=== PATIENT | female | born 1935 | race Two or more races ===

== ENCOUNTER 2017-12-10 08:35 | Outpatient (CLI) | payer OTHER ==
[~2017-12-10 08:35] MED LIST: COZAAR50 MG; DIAZEPAM5 MG PO; ENALAPRIL MALEA10 MG; LIPITOR20 MG; NEURONTIN300 MG; OMEPRAZOLE20 MG; SERTRALINE HCL25 MG; TRAMADOL HCL-AP1 TAB; ZETIA10 MG; ZOVIRAX5 GM
== END 2017-12-10 08:47 | disposition home or self-care (01) ==
LOC: LAB 08:35
DX: D50.0 Iron deficiency anemia secondary to blood loss (chronic) (principal); E11.65 Type 2 diabetes mellitus with hyperglycemia; E11.9 Type 2 diabetes mellitus without complications; Z12.11 Encounter for screening for malignant neoplasm of colon; K62.5 Hemorrhage of anus and rectum; R10.9 Unspecified abdominal pain; E78.2 Mixed hyperlipidemia; E03.0 Congenital hypothyroidism with diffuse goiter; N39.0 Urinary tract infection, site not specified; E55.9 Vitamin D deficiency, unspecified; M81.0 Age-related osteoporosis without current pathological fracture; E11.29 Type 2 diabetes mellitus with other diabetic kidney complication

== ENCOUNTER 2018-01-22 12:12 | Emergency (ER) | payer OTHER ==
[~2018-01-22] VITALS: Ht 152.4 cm; Wt 54.4 kg
[2018-01-22] MEDS ORDERED: AMLODIPINE BESYL5 MG (12:32)
[2018-01-22] MEDS ORDERED: AVAPRO300 MG (12:33)
== END 2018-01-22 16:21 | disposition home or self-care (01) ==
LOC: ER 12:12
DX: B34.9 Viral infection, unspecified (principal)

== ENCOUNTER 2018-03-08 07:32 | Outpatient (CLI) | payer OTHER ==
[~2018-03-08 07:32] MED LIST changes: +AMLODIPINE BESYL5 MG; +AVAPRO300 MG
== END 2018-03-08 07:39 | disposition home or self-care (01) ==
LOC: LAB 07:32
DX: D50.0 Iron deficiency anemia secondary to blood loss (chronic) (principal); E11.65 Type 2 diabetes mellitus with hyperglycemia; E78.2 Mixed hyperlipidemia; E03.0 Congenital hypothyroidism with diffuse goiter; N39.0 Urinary tract infection, site not specified

== ENCOUNTER → 2018-05-24 06:54 | Outpatient (CLI) | payer OTHER | END | disposition home or self-care (01) | LOC: LAB 06:54 | DX: E78.00 Pure hypercholesterolemia, unspecified (principal); N39.0 Urinary tract infection, site not specified ==

== ENCOUNTER 2018-12-02 08:29 | Outpatient (CLI) | payer OTHER | END 2018-12-02 08:44 | disposition home or self-care (01) | LOC: LAB 08:29 | DX: D50.0 Iron deficiency anemia secondary to blood loss (chronic) (principal); E11.69 Type 2 diabetes mellitus with other specified complication; E78.00 Pure hypercholesterolemia, unspecified; E03.8 Other specified hypothyroidism; N39.0 Urinary tract infection, site not specified; Z12.11 Encounter for screening for malignant neoplasm of colon; K62.5 Hemorrhage of anus and rectum; R10.9 Unspecified abdominal pain; E55.9 Vitamin D deficiency, unspecified; E51.8 Other manifestations of thiamine deficiency ==

== ENCOUNTER 2018-12-03 07:29 | Outpatient (CLI) | payer OTHER | END 2018-12-03 09:10 | disposition home or self-care (01) | LOC: LAB 07:29 | DX: D50.0 Iron deficiency anemia secondary to blood loss (chronic) (principal); E11.69 Type 2 diabetes mellitus with other specified complication; E78.00 Pure hypercholesterolemia, unspecified; E03.8 Other specified hypothyroidism; N39.0 Urinary tract infection, site not specified; Z12.11 Encounter for screening for malignant neoplasm of colon; K62.5 Hemorrhage of anus and rectum; R10.9 Unspecified abdominal pain; E55.9 Vitamin D deficiency, unspecified; E51.8 Other manifestations of thiamine deficiency ==

== ENCOUNTER 2019-01-17 11:02 | Emergency (ER) | payer OTHER ==
[~2019-01-17] VITALS: Ht 165.1 cm; Wt 57.2 kg
[2019-01-17] MEDS ORDERED: PRAVASTATIN SOD40 MG PO (11:13)
[2019-01-17] MEDS ORDERED: ZETIA10 MG PO (11:13)
== END 2019-01-17 12:27 | disposition home or self-care (01) ==
LOC: ER 11:02
DX: J04.0 Acute laryngitis (principal)

== ENCOUNTER 2019-03-14 07:08 | Outpatient (CLI) | payer OTHER ==
[~2019-03-14 07:08] MED LIST changes: +PRAVASTATIN SOD40 MG PO; +ZETIA10 MG PO
== END 2019-03-14 07:15 | disposition home or self-care (01) ==
LOC: LAB 07:08
DX: D50.0 Iron deficiency anemia secondary to blood loss (chronic) (principal); E11.69 Type 2 diabetes mellitus with other specified complication; E78.00 Pure hypercholesterolemia, unspecified; E03.8 Other specified hypothyroidism; N39.0 Urinary tract infection, site not specified

== ENCOUNTER → 2019-04-11 | Emergency (ER) | payer OTHER ==
[~2019-04-11] VITALS: Ht 157.5 cm; Wt 49.9 kg
== END | disposition home or self-care (01) ==
LOC: ER 10:29
DX: R42 Dizziness and giddiness (principal); F41.8 Other specified anxiety disorders

== ENCOUNTER → 2019-05-06 | Emergency (ER) | payer OTHER ==
[~2019-05-06] VITALS: Ht 162.6 cm; Wt 49.9 kg
== END | disposition home or self-care (01) ==
LOC: ER 13:35
DX: R10.84 Generalized abdominal pain (principal); R11.2 Nausea with vomiting, unspecified

== ENCOUNTER 2019-06-17 06:47 | Outpatient (CLI) | payer OTHER | END 2019-06-17 06:54 | disposition home or self-care (01) | LOC: LAB 06:47 | DX: D64.89 Other specified anemias (principal); I10 Essential (primary) hypertension; E11.9 Type 2 diabetes mellitus without complications; E78.00 Pure hypercholesterolemia, unspecified; N39.0 Urinary tract infection, site not specified; E03.8 Other specified hypothyroidism; E11.69 Type 2 diabetes mellitus with other specified complication ==

== ENCOUNTER 2019-08-02 13:12 | Emergency (ER) | payer OTHER ==
[~2019-08-02] VITALS: Ht 152.4 cm; Wt 49.9 kg
[2019-08-02] MEDS ORDERED: TRAZODONE HCL50 MG (13:18)
[2019-08-02] MEDS ORDERED: ATACAND16 MG (13:19)
[2019-08-02] MEDS ORDERED: LANSOPRAZOLE15 MG (13:19)
[2019-08-02] MEDS ORDERED: LIPO-FLAVONOID1 EACH (13:20)
[2019-08-02] MEDS ORDERED: CORTISPORIN EAR10 M1 (13:20)
== END 2019-08-02 16:35 | disposition home or self-care (01) ==
LOC: ER 13:12
DX: G89.11 Acute pain due to trauma (principal); M25.511 Pain in right shoulder; M54.2 Cervicalgia; G44.309 Post-traumatic headache, unspecified, not intractable; R07.89 Other chest pain

== ENCOUNTER 2019-08-12 11:45 | Emergency (ER) | payer OTHER ==
[~2019-08-12] VITALS: Ht 157.5 cm; Wt 58.1 kg
[~2019-08-12 11:45] MED LIST changes: +ATACAND16 MG; +CORTISPORIN EAR10 M1; +LANSOPRAZOLE15 MG; +LIPO-FLAVONOID1 EACH; +TRAZODONE HCL50 MG
== END 2019-08-12 13:37 | disposition home or self-care (01) ==
LOC: ER 11:45
DX: I16.0 Hypertensive urgency (principal); I10 Essential (primary) hypertension

== ENCOUNTER 2019-11-30 07:42 | Outpatient (CLI) | payer OTHER | END 2019-11-30 07:50 | disposition home or self-care (01) | LOC: LAB 07:42 | DX: D64.89 Other specified anemias (principal); I10 Essential (primary) hypertension; E11.9 Type 2 diabetes mellitus without complications; E78.00 Pure hypercholesterolemia, unspecified; N39.0 Urinary tract infection, site not specified; E03.8 Other specified hypothyroidism; E55.9 Vitamin D deficiency, unspecified; R80.8 Other proteinuria; R19.5 Other fecal abnormalities ==

== ENCOUNTER 2021-04-17 11:32 | Outpatient (CLI) | payer OTHER | END 2021-04-17 11:40 | disposition home or self-care (01) | LOC: RAD 11:32 | PROVIDERS: ATTEND Internal Medicine | DX: M25.552 Pain in left hip (principal); M25.551 Pain in right hip; M25.59 Pain in other specified joint; M13.88 Other specified arthritis, other site ==

== ENCOUNTER 2022-07-04 08:05 | Outpatient (CLI) | payer OTHER | END 2022-07-04 08:08 | disposition home or self-care (01) | LOC: SONOGRAMA 08:05 | PROVIDERS: ATTEND Internal Medicine | DX: N18.2 Chronic kidney disease, stage 2 (mild) (principal) ==

== ENCOUNTER 2022-07-12 18:47 | Emergency (ER) | payer OTHER ==
[~2022-07-12] VITALS: Ht 149.9 cm; Wt 49.0 kg
[2022-07-12] MEDS ORDERED: ROSUVASTATIN CA10 MG PO (19:32)
[2022-07-12] MEDS ORDERED: VERAPAMIL ER120 MG PO (19:32)
[2022-07-12] MEDS ORDERED: AZITHROMYCIN250 MG PO (22:33)
[2022-07-12] MEDS ORDERED: DIABETIC SILTU118 M1 PO (22:36)
== END 2022-07-12 22:41 | disposition home or self-care (01) ==
LOC: ER 18:47
DX: U07.1 COVID-19 (principal); I10 Essential (primary) hypertension; Z88.0 Allergy status to penicillin; Z88.8 Allergy status to other drugs, medicaments and biological substances

== ENCOUNTER 2022-10-07 08:43 | Outpatient (CLI) | payer OTHER ==
[~2022-10-07 08:43] MED LIST changes: +AZITHROMYCIN250 MG PO; +DIABETIC SILTU118 M1 PO; +ROSUVASTATIN CA10 MG PO; +VERAPAMIL ER120 MG PO
== END 2022-10-07 08:51 | disposition home or self-care (01) ==
LOC: SONOGRAMA 08:43
PROVIDERS: ATTEND Internal Medicine
DX: E04.1 Nontoxic single thyroid nodule (principal); N18.2 Chronic kidney disease, stage 2 (mild); M54.17 Radiculopathy, lumbosacral region; E55.9 Vitamin D deficiency, unspecified; E78.5 Hyperlipidemia, unspecified; H25.9 Unspecified age-related cataract; I11.9 Hypertensive heart disease without heart failure; M81.0 Age-related osteoporosis without current pathological fracture

== ENCOUNTER 2023-03-26 12:01 | Emergency (ER) | payer OTHER ==
[~2023-03-26] VITALS: Ht 157.5 cm; Wt 59.0 kg
[2023-03-26] MEDS ORDERED: PRAVASTATIN SOD20 MG PO (12:37)
[2023-03-26] MEDS ORDERED: ATACAND16 MG PO (12:38)
== END 2023-03-26 17:10 | disposition home or self-care (01) ==
LOC: ER 12:01
DX: K52.9 Noninfective gastroenteritis and colitis, unspecified (principal); Z88.0 Allergy status to penicillin; Z88.2 Allergy status to sulfonamides; I10 Essential (primary) hypertension